=== PATIENT | female | born 1955 | race Caucasian/White ===

== ENCOUNTER 2016-08-18 11:17 | Emergency (ER) | payer OTHER ==
--- NOTE | 2016-08-18 11:32 | ED Physician Documentation ---
General Adult - HISTORIAN Historian: patient - HPI Stated Complaint: swelling L lower jaw Chief Complaint: General Adult Onset: days ago (3) Timing: still present Severity: moderate Further Comments: yes (Pt is a 61 yo female with hx HIV, who has a swelling along her R lower jaw, that she believes is an inflamed lymph node. Pt has had nearly identical sx before several years ago that was resolved with abx. Pt has dentures, having had her teeth removed. Pt has not had fever, n/v. Enlarged area is very tender.) - ROS CONST: no problems EYES/ENT: none CVS/RESP: none MS/SKIN/LYMPH: other (swelling, possible enlarged lymph node, L lower jaw.) - PAST HX Past History: other (HIV) Allergies/Adverse Reactions: Allergies Allergy/AdvReac Type Severity Reaction Status Date / Time ibuprofen Allergy Intermediate Rash Verified 08/18/16 11:36 No Known Drug Allergies Allergy Verified 08/18/16 11:35 Iodinated Contrast Media - AdvReac Intermediate Palpitation Verified 08/18/16 11 :38 IV Dye s Home Medications: Ambulatory Orders Medication Instructions Recorded Aripiprazole [Abilify] 2 mg PO DAILY u2 05/17/13 Prochlorperazine Maleate 10 mg PO PRN u2 05/17/13 Trazodone HCl 50 mg PO HS u2 05/17/13 - SOCIAL HX Smoking History: cigarettes - FAMILY HX Family History: No - REVIEWED ASSESSMENTS Nursing Assessment Reviewed: Yes Vitals Reviewed: Yes Progress - Progress Progress: Rx Augmenting (875/125) 1 po q 12 h x 10 days. Rx [place] (5/325) 1-2 po q 4-6h prn # 15. General Adult Physical Exam - PHYSICAL EXAM GENERAL APPEARANCE: mild distress EENT: eye inspection normal, pharynx normal, other (swelling L lower jaw) NECK: normal inspection, supple RESPIRATORY: no resp distress, chest non-tender, breath sounds normal CVS: reg rate & rhythm, heart sounds normal BACK: normal inspection SKIN: other (swelling, L lower jaw, tender) EXTREMITIES: non-tender, normal range of motion NEURO: oriented X3, motor nml, sensation nml Discharge Clincal Impression: Lymphadenopathy, possible jaw abscess Referrals: Shanae Morales MD [Primary Care Provider] - Home Medications: Ambulatory Orders Aripiprazole [Abilify] 2 mg PO DAILY u2 05/17/13 Prochlorperazine Maleate 10 mg PO PRN u2 05/17/13 Trazodone HCl 50 mg PO HS u2 05/17/13 Condition: Stable Disposition: 01 HOME, SELF-CARE Decision to Admit: NO Decision Time: 11:32
[2016-08-18 11:48] VITALS: BP 143/86
== END 2016-08-18 11:47 | disposition home or self-care (01) ==
LOC: ED 11:17
DX: R59.0 Localized enlarged lymph nodes (principal); Z21 Asymptomatic human immunodeficiency virus [HIV] infection status
CPT/HCPCS: 99283

== ENCOUNTER 2016-09-09 14:19 | Emergency (ER) | payer OTHER ==
--- NOTE | 2016-09-09 14:29 | ED Physician Documentation ---
General Adult - HISTORIAN Historian: patient - HPI Stated Complaint: intoxication Chief Complaint: General Adult Onset: days ago Timing: still present Severity: moderate Further Comments: yes (Pt is a 61 yo female with hx alcoholism. Pt states that she stopped drinking for 1 year and then, last week, she relapsed and has been drinking a fifth of whiskey/day for the last 6 days. Pt is afraid that if she stops drinking, she may have the DT's or a seizure. Pt has hx bipolar d/o, HIV , and HTN.) - ROS CONST: other (intoxication) EYES/ENT: none CVS/RESP: none GI/: none MS/SKIN/LYMPH: other (back pain) NEURO/PSYCH: other (intoxicated) - PAST HX Past History: other (bipolar d/o, alcohol abuse, HIV) Allergies/Adverse Reactions: Allergies Allergy/AdvReac Type Severity Reaction Status Date / Time ibuprofen Allergy Intermediate Rash Verified 09/09/16 14:42 No Known Drug Allergies Allergy Verified 09/09/16 14:42 Iodinated Contrast Media - AdvReac Intermediate Palpitation Verified 09/09/16 14 :42 IV Dye s Home Medications: Ambulatory Orders Medication Instructions Recorded Aripiprazole [Abilify] 2 mg PO DAILY u2 05/17/13 Trazodone HCl 50 mg PO HS u2 05/17/13 - SOCIAL HX Smoking History: cigarettes Alcohol Use: heavy - FAMILY HX Family History: No - VITAL SIGNS Vital Signs: Vital Signs Temp Pulse Resp BP Pulse Ox 143/86 08/18/16 11:47 - REVIEWED ASSESSMENTS Nursing Assessment Reviewed: Yes Vitals Reviewed: Yes Progress - Progress Progress: Banana Bag 1 L IVF Contacted [facility] re: voluntary placement, but [facility] does not accept pt's insurance, [employer]. Contacted [facility] in [place], [place] (Tel. [phone]). They accept [employer], but say they will accept pt only if pt is actively withdrawing. Was considering admitting pt to obs and attempting rehab placement tomorrow. Pt decided that she did not want to be admitted. Pt was provided with Telephone number for [facility], should she decide to seek placement later. General Adult Physical Exam - PHYSICAL EXAM GENERAL APPEARANCE: thin EENT: eye inspection normal, pharynx normal NECK: normal inspection, supple RESPIRATORY: no resp distress, chest non-tender, breath sounds normal (distant breath sounds) CVS: reg rate & rhythm, heart sounds normal ABDOMEN: soft, no organomegaly, normal bowel sounds BACK: normal inspection SKIN: warm/dry, normal color EXTREMITIES: non-tender, normal range of motion, no evidence of injury NEURO: oriented X3, motor nml, sensation nml, other (intoxicated) Discharge Clincal Impression: intoxication Referrals: Shanae Morales MD [Primary Care Provider] - Home Medications: Ambulatory Orders Aripiprazole [Abilify] 2 mg PO DAILY u2 05/17/13 Trazodone HCl 50 mg PO HS u2 05/17/13 Condition: Stable Decision to Admit: NO Decision Time: 16:43
[2016-09-09 14:39] VITALS: BP 147/98
[2016-09-09 14:51] LABS: APPEARANCE,URINE Clear (CLEAR); COLOR,URINE Yellow (YELLOW); OCCULT BLOOD,URINE Negative (NEGATIVE); PH URINE 6.5 (5.0 - 8.0); UROBILINOGEN URINE 0.2 Eu (0.2-1.0)
[2016-09-09 14:54] LABS: AMPHETAMINE NEGATIVE ng/mL (<1000); BARBITURATES NEGATIVE ng/mL (<300); CANNABINOIDS NEGATIVE ng/mL (<50); COCAINE NEGATIVE ng/mL (<150); METHAMPHETAMINE NEGATIVE ng/mL (<1000); METHYLENEDIOXYMETHAMPHETAMINE NEGATIVE ng/mL (<500)
[2016-09-09] MEDS ORDERED: 0.9 % SODIUM CHLORIDE 1,000 ML IV ONE (14:54)
[2016-09-09] MEDS ORDERED: MVI, ADULT NO.1 WITH VIT K 10 ML VIAL IV ONE (14:55)
[2016-09-09] MEDS ORDERED: THIAMINE HCL 100 MG/ML 2ML VIAL ONE (14:55)
[2016-09-09] MEDS ORDERED: FOLIC ACID 5 MG/1 ML ONE (14:55)
[2016-09-09] MEDS ORDERED: THIAMINE HCL 100 MG, MVI, ADULT NO.1 WITH VIT K 10 ML, FOLIC ACID 5 MG in 0.9 % SODIUM ... IV SCH ×4 (15:00)
[2016-09-09 15:17] LABS: BASOPHILS % 0.5 (0.0-1.5); EOSINOPHILS % 0.5 % (0.0-6.8); MEAN CORPUSCULAR HEMOGLOBIN 31.9 pg (28.0-34.0); MEAN CORPUSCULAR VOLUME 93.6 fl (80.0-100.0); MONOCYTES % 4.2 % (0.0-11.0); NEUTROPHILS # 2.9 # k/uL (1.4-7.7)
[2016-09-09 15:21] LABS: eGFR (African) > 60; eGFR (Non-African) > 60
== END 2016-09-09 16:45 ==
LOC: ED 14:19 → EDSTATUS 14:20 → ED 16:45
DX: F10.229 Alcohol dependence with intoxication, unspecified (principal)
CPT/HCPCS: 80053; 80320; 80377; 81002; 85025; J3411; J3490; J7030; 96360; 99284; G0480; G0481; S1016

== ENCOUNTER 2016-09-09 17:39 | Observation (INO) | payer OTHER ==
[2016-09-09] MEDS ORDERED: 0.9 % SODIUM CHLORIDE 1,000 ML IV ONE (18:12)
--- NOTE | 2016-09-09 18:13 | ED Physician Documentation ---
General Adult - HISTORIAN Historian: patient - HPI Stated Complaint: intoxication, wants detox Chief Complaint: General Adult Onset: days ago Timing: still present Severity: moderate Further Comments: yes (Pt is a 61 yo female with hx alcoholism, who was here in ER only an hour ago. She had requested and then declined treatment. She again requests detox. Pt returns intoxicated stating that she has consumed a bottle of wine in the short interval during which she left the ER. Pt states that she had stopped drinking for 1 year and then, last week, she relapsed and has been drinking a fifth of whiskey/day for the last 6 days. Pt is afraid that if she stops drinking, she may have the DT's or a seizure. Pt says that she has tried to quit drinking on her own in the past and then had seizures. Pt has hx bipolar d/o, HIV, and HTN. See note from earlier visit today.) - ROS CONST: other (intoxication) EYES/ENT: none CVS/RESP: none GI/: none MS/SKIN/LYMPH: none NEURO/PSYCH: other (alcohol intoxication, "shakey") - PAST HX Past History: other (Alcoholism, bipolar d/o, HIV) Allergies/Adverse Reactions: Allergies Allergy/AdvReac Type Severity Reaction Status Date / Time ibuprofen Allergy Intermediate Rash Verified 09/09/16 18:02 No Known Drug Allergies Allergy Verified 09/09/16 18:02 Iodinated Contrast Media - AdvReac Intermediate Palpitation Verified 09/09/16 18 :02 IV Dye s Home Medications: Ambulatory Orders Medication Instructions Recorded Aripiprazole [Abilify] 2 mg PO DAILY u2 05/17/13 Trazodone HCl 50 mg PO HS u2 05/17/13 - SOCIAL HX Smoking History: cigarettes Alcohol Use: heavy - FAMILY HX Family History: No - VITAL SIGNS Vital Signs: Vital Signs Temp Pulse Resp BP Pulse Ox 98.1 F 100 H 16 130/87 97 09/09/16 17:39 09/09/16 17:39 09/09/16 17:39 09/09/16 17:39 09/09/16 17:39 - REVIEWED ASSESSMENTS Nursing Assessment Reviewed: Yes Vitals Reviewed: Yes Progress - Progress Progress: NS @ 100 cc/hr Admit to Dr. Borrero, ETOH withdrawal precautions. ED Results Lab/Radiology - Orders Orders: ED Orders Category Date Time Status ETHANOL MEDICAL USE ONLY Routine Lab 09/09/16 17:55 Received General Adult Physical Exam - PHYSICAL EXAM GENERAL APPEARANCE: moderate distress EENT: eye inspection normal, pharynx normal NECK: normal inspection, supple RESPIRATORY: no resp distress, chest non-tender, breath sounds normal (distant breath sounds) CVS: reg rate & rhythm, heart sounds normal ABDOMEN: soft, no organomegaly, normal bowel sounds BACK: normal inspection SKIN: warm/dry, normal color EXTREMITIES: non-tender, normal range of motion, no evidence of injury NEURO: oriented X3, motor nml, sensation nml, other (intoxicated) Discharge Clincal Impression: ETOH intoxication, withdrawl risk Referrals: Shanae Morales MD [Primary Care Provider] - Home Medications: Ambulatory Orders Aripiprazole [Abilify] 2 mg PO DAILY u2 05/17/13 Trazodone HCl 50 mg PO HS u2 05/17/13 Condition: Stable Disposition: 09 ADMITTED INPATIENT Decision to Admit: [id number] Decision Time: 18:44
[2016-09-09] MEDS: 0.9 % SODIUM CHLORIDE 1,000 ML IV SCH ×2 (18:24→19:45)
--- NOTE | 2016-09-09 21:32 | History and Physical Report ---
History of Present Illnes - History of Present Illness Reason for Visit: Acute alcohol intoxication History of Present Illness: This is a 61 year old female who presented twice to the ER today with desire to quit drinking. She left after being in the ER for a few hours and then, after consuming another bottle of wine, came back to the ER with her BAL being slightly more elevated than during her first visit. She had been sober for several years and then began drinking again 4 months ago,and since then has been daily drinking over a fifth of whiskey daily. She has a history of seizures when she has stopped drinking in the past, and voiced this fear to the ER staff at her first visit. She is now too intoxicated to extract much history from , but appears to be in no acute distress and is resting comfortably. Severity assessments are in place. - Past Medical History Cardiac: HTN Pulmonary: COPD Gastrointestinal: Peptic ulcer disease Psych: Addictions, Bipolar, Other (Borderline personality disorder) Musculoskeletal: Chronic low back pain Infectious Disease: HIV - Past Surgical History Past Surgical History: Other (Breast implants) - Past Social History Smoke: 1 pack per day Alcohol: Heavy Drugs: Other Lives: Alone Domestic Violence: Other (cannot elicit) - Health Maintenance Health Maintenance: Cholesterol Influenza Vaccine: Current for this Influenza Season Pneumonia Vaccine: Yes Resuscitation Status: Resusciation Status Resuscitation Status Full Code Review of Systems - Review of Systems Constitutional: negative: Fever Eyes: negative: pain ENT: negative: Ear Pain Respiratory: negative: Cough Cardiovascular: negative: Chest Pain Gastrointestinal: negative: Nausea Genitourinary: negative: Dysuria Musculoskeletal: negative: Neck Pain Skin: negative: Rash Neurological: Confusion. negative: Weakness - Medications/Allergies Allergies/Adverse Reactions: Allergies Allergy/AdvReac Type Severity Reaction Status Date / Time ibuprofen Allergy Intermediate Rash Verified 09/09/16 18:02 No Known Drug Allergies Allergy Verified 09/09/16 18:02 Iodinated Contrast Media - AdvReac Intermediate Palpitation Verified 09/09/16 18 :02 IV Dye s Current Inpatient Medications: Current Inpatient Medications Aripiprazole (Aripiprazole) 2 mg PO QD SHAHLA Stop: 09/11/16 23:59 Sodium Chloride (Normal Saline) 1,000 mls @ 125 mls/hr IV Q8H SHAHLA Last Admin: 09/09/16 19:45 Dose: 125 mls/hr Lisinopril (Prinivil) 10 mg PO NOW ONE Stop: 09/10/16 09:01 Nicotine (Habitrol 14mg) 1 patch TD DAILY SHAHLA Exam - Exam Vital Signs: Vital Signs (72 hours) 09/09/16 19:32 Temperature 98.0 F Pulse Rate [ 75 Pulse ox] Respiratory 20 Rate Blood Pressure 133/69 [Left Arm] O2 Sat by Pulse 94 Oximetry General: Oriented to Person, No acute distress. No: Alert, Oriented to Place, Oriented to Time HEENT: Atraumatic, PERRLA Neck: No: Stridor Lungs: Clear to auscultation, Decreased Air Movement Cardiovascular: Regular rate Murmur: No: Systolic Murmur Abdomen: Normal bowel sounds, Soft. No: Distended, Rigid Genitourinary: No: Other Male Genitourinary: No: Other Female Genitourinary: No: Other Integumentary: Normal, [employer] Extremities: No clubbing, No cyanosis, No edema Neurological: No: Normal speech Psych/Mental Status: No: Mental status NL, Intact Judgment Assessment/Plan - Assessment/Plan (1) Acute alcohol intoxication Status: Acute Current Visit: Yes Assessment: Admit for observation Severity assessments are in place Plan: Plan is for her to attempt placement in [facility] tomorrow (2) Bipolar 1 disorder Status: Acute Current Visit: Yes Assessment: Continue Abilify (3) HIV (human immunodeficiency virus infection) Status: Acute Current Visit: Yes Assessment: Currently on no apparent medications (4) Hypertension Status: Acute Current Visit: Yes Assessment: Stable Plan: Continue lisinopril VTE Assessment - RISK FACTOR SCORE VTE RISK FACTOR SCORES: AGE OVER 60 YEARS - RISK VTE LOW RISK: SCORE OF 1 OR LESS (RISK PROXIMAL DVT 0.4%) NO PROPHYLAXIS NEEDED (None needed)
[2016-09-09] MEDS ORDERED: LORazepam 2 MG/ML VIAL IVP PRN (22:04)
[2016-09-09 22:07] VITALS: BMI 18.0
[2016-09-10] MEDS: 0.9 % SODIUM CHLORIDE 1,000 ML IV SCH (03:10)
[2016-09-10 08:13] VITALS: BP 181/65
[2016-09-10] MEDS ORDERED: NICOTINE 14mg PATCH.TD24 TD SCH (09:00)
[2016-09-10] MEDS ORDERED: LISINOPRIL 5 MG TABLET PO ONE (09:00)
[2016-09-10] MEDS ORDERED: ARIPIPRAZOLE 2 MG TABLET PO SCH (09:00)
--- NOTE | 2016-09-10 09:10 | Discharge Summary ---
DATE OF ADMISSION: September 09, 2016 DATE OF DISCHARGE: September 10, 2016 DIAGNOSES ON THIS HOSPITALIZATION: 1. Alcohol intoxication. 2. Bipolar I disorder. 3. HIV infection. 4. Hypertension. SUMMARIZATION OF ADMISSION HISTORY AND PHYSICAL: This is a 61-year-old female who had begun with chronic alcoholism, who had actually been sober for a while, the last 4 weeks when she began to drink about a fifth of whiskey again every day. She came in last night acutely intoxicated. HOSPITAL COURSE: She was admitted. She was sober by the next morning. She did never did score on the Severity Assessment Scale. She was discharged to home then with resumption of all of her medications. DISCHARGE INSTRUCTIONS: Follow up with Dr. Morales this week. TAE
== END 2016-09-10 08:55 | disposition home or self-care (01) ==
LOC: ED 17:39 → SOUTH 18:57
PROVIDERS: ADMIT Family Medicine; ATTEND Family Medicine
DX: F10.129 Alcohol abuse with intoxication, unspecified (principal); F31.9 Bipolar disorder, unspecified; Z21 Asymptomatic human immunodeficiency virus [HIV] infection status; I10 Essential (primary) hypertension
CPT/HCPCS: 80320; G0378; J7030; 99284; G0480; S1016

== ENCOUNTER 2016-09-11 08:00 | Emergency (ER) | payer OTHER ==
[2016-09-11] MEDS ORDERED: THIAMINE HCL 100 MG, MVI, ADULT NO.1 WITH VIT K 10 ML, FOLIC ACID 5 MG in 0.9 % SODIUM ... IV ONE ×4 (08:17)
[2016-09-11] MEDS ORDERED: MVI, ADULT NO.1 WITH VIT K 10 ML VIAL IV ONE (08:18)
[2016-09-11] MEDS ORDERED: THIAMINE HCL 100 MG/ML 2ML VIAL ONE (08:18)
[2016-09-11] MEDS ORDERED: 0.9 % SODIUM CHLORIDE 1,000 ML IV ONE ×3 (08:18→10:14)
[2016-09-11] MEDS ORDERED: FOLIC ACID 5 MG/1 ML ONE (08:18)
[2016-09-11 08:24] LABS: BASOPHILS % 0.4 (0.0-1.5); EOSINOPHILS % 3.2 % (0.0-6.8); MEAN CORPUSCULAR HEMOGLOBIN 32.4 pg (28.0-34.0); MEAN CORPUSCULAR VOLUME 94.8 fl (80.0-100.0); MONOCYTES % 3.6 % (0.0-11.0); NEUTROPHILS # 2.1 # k/uL (1.4-7.7)
--- NOTE | 2016-09-11 08:28 | ED Physician Documentation ---
General Adult - HISTORIAN Historian: patient, paramedics - [facility] Chief Complaint: General Adult Further Comments: yes (61 year old female patient presents intoxicated. "Are you going to save me?" Patient too intoxicated to complete History and ROS. Old records reviewed. Seen in Er twice on 09/09/2016, admitted to med surg. Discharge to F/U with PCP. Patient has history of ETOH abuse, had been sober for some time until 4 months ago. Now consuming a Fifth of whiskey daily. Patient states "I've been drinking whiskey", cannot quantify amount at this time.) - ROS CONST: no problems (unable to complete due to intoxication. ) - PAST HX Past History: COPD Other History: other (bipolar, HIV positive) Allergies/Adverse Reactions: Allergies Allergy/AdvReac Type Severity Reaction Status Date / Time ibuprofen Allergy Intermediate Rash Verified 09/11/16 09:11 Iodinated Contrast Media - AdvReac Intermediate Palpitation Verified 09/11/16 09 :11 IV Dye s Home Medications: Ambulatory Orders Medication Instructions Recorded Aripiprazole [Abilify] 2 mg PO DAILY u2 05/17/13 Trazodone HCl 50 mg PO HS u2 05/17/13 - SOCIAL HX Smoking History: cigarettes Alcohol Use: heavy Drug Use: other (unknown) - FAMILY HX Family History: No - VITAL SIGNS Vital Signs: Vital Signs Temp Pulse Resp BP Pulse Ox 181/65 09/10/16 08:23 - REVIEWED ASSESSMENTS Nursing Assessment Reviewed: Yes Vitals Reviewed: Yes Progress - Progress Progress: Will progress with IV fluids. 0840 Patient awakens at times, yells at nurses, frequently using profanity. Able to redirect, goes back to sleep. 1200 Repeat ETOH 314 - will admit for IV fluids, ETOH assessment. ED Results Lab/Radiology - Orders Orders: ED Orders Category Date Time Status Place Saline Lock/IV Now Care 09/11/16 08:17 Active CBC/PLATELET/DIFF Routine Lab 09/11/16 08:20 Received CMP Routine Lab 09/11/16 08:20 Received DRUG SCREEN URINE MEDICAL ONLY Routine Lab 09/11/16 08:17 Ordered ETHANOL MEDICAL USE ONLY Routine Lab 09/11/16 08:20 Received URINALYSIS Routine Lab 09/11/16 08:17 Ordered 0.9 % Sodium Chloride [Normal Saline] 1,000 ml Med 09/11/16 08:18 Discontinued IV .STK-MED Folic Acid [Folvite] Med 09/11/16 08:18 Discontinued 5 mg .ROUTE .STK-MED ONE Mvi, Adult No.1 with Vit K [M.v.i. Adult] Med 09/11/16 08:18 Discontinued 10 ml IV .STK-MED ONE Thiamine HCl Med 09/11/16 08:18 Discontinued 200 mg .ROUTE .STK-MED ONE Thiamine HCl 100 mg Med 09/11/16 08:17 Active Mvi, Adult No.1 with Vit K [M.v.i. Adult] 10 ml Folic Acid [Folvite] 5 mg 0.9 % Sodium Chloride [Normal Saline] 1,000 ml IV NOW General Adult Physical Exam - PHYSICAL EXAM GENERAL APPEARANCE: severe intoxication, strong smell of ETOH EENT: eye inspection normal, NOEMI RESPIRATORY: no resp distress, chest non-tender, breath sounds normal CVS: reg rate & rhythm, heart sounds normal, equal pulses, no murmur, no gallop , PMI nml, no JVD, no friction rub, 24 ABDOMEN: soft, no organomegaly, normal bowel sounds, no abdominal bruit, no distension SKIN: normal color, warm/dry, NR, INT, PAL, DR EXTREMITIES: non-tender, normal range of motion, no evidence of injury, no edema , J, [employer]CIAL DATA A[employer]LYST NEURO: motor nml, other (no neuro deficit noted at this time, HE x 4, intoxicated, oriented to person only.) Discharge Clincal Impression: HIV (human immunodeficiency virus infection) Acute alcohol intoxication Qualifiers: Complication of substance-induced condition: uncomplicated Qualified Code(s): F10.120 - Alcohol abuse with intoxication, uncomplicated Home Medications: Ambulatory Orders Aripiprazole [Abilify] 2 mg PO DAILY u2 05/17/13 Trazodone HCl 50 mg PO HS u2 05/17/13 Condition: Stable Disposition: ADMITTED INPATIENT Decision to Admit: NO Decision Time: 12:15
[2016-09-11 08:41] LABS: eGFR (African) > 60; eGFR (Non-African) > 60
[2016-09-11 09:29] LABS: APPEARANCE,URINE Clear (CLEAR); COLOR,URINE Yellow (YELLOW); OCCULT BLOOD,URINE Trace-intact (NEGATIVE); PH URINE 5.5 (5.0 - 8.0); UROBILINOGEN URINE 0.2 Eu (0.2-1.0)
[2016-09-11 09:31] LABS: AMPHETAMINE NEGATIVE ng/mL (<1000); BARBITURATES NEGATIVE ng/mL (<300); CANNABINOIDS NEGATIVE ng/mL (<50); COCAINE NEGATIVE ng/mL (<150); METHAMPHETAMINE NEGATIVE ng/mL (<1000); METHYLENEDIOXYMETHAMPHETAMINE NEGATIVE ng/mL (<500)
[2016-09-11 12:29] VITALS: BP 120/68
== END 2016-09-11 12:10 | disposition other institution (70) ==
LOC: ED 08:00
DX: F10.120 Alcohol abuse with intoxication, uncomplicated (principal); Z21 Asymptomatic human immunodeficiency virus [HIV] infection status
CPT/HCPCS: 36415; 80053; 80320; 80377; 81002; 85025; J3411; J3490; J7030; 96360; 99283; 99284; G0480; G0481

== ENCOUNTER 2016-09-11 11:40 | Observation (INO) | payer OTHER ==
[2016-09-11] MEDS ORDERED: LORazepam 2 MG/ML VIAL IVP PRN (12:38)
[2016-09-11] MEDS: DEXTROSE 5 %-0.45 % NACL 1,000 ML IV SCH ×2 (12:58→19:37)
[2016-09-11 14:39] VITALS: BMI 19.3
[2016-09-12] MEDS: DEXTROSE 5 %-0.45 % NACL 1,000 ML IV SCH (01:45)
[2016-09-12] MEDS ORDERED: MAG HYDROX/AL HYDROX/SIMETH 30 ML, Lidocaine 2%Visc 15ml 20 MG, PHENobarb/HYOSCY/ATROPI... PO ONE ×3 (07:25)
[2016-09-12] MEDS ORDERED: PANTOPRAZOLE SODIUM 40 MG TABLET PO ONE (07:25)
[2016-09-12] MEDS ORDERED: ONDANSETRON HCL 4 MG TAB.RAPDIS PO ONE (07:25)
--- NOTE | 2016-09-12 08:03 | Discharge Summary ---
Discharge Summary - Discharge Sumary History of Present Illness: chronic alcoholism Condition at Discharge: Stable Home Medications: Ambulatory Orders Medication Instructions Recorded Aripiprazole [Abilify] 2 mg PO DAILY u2 05/17/13 Trazodone HCl 50 mg PO HS u2 05/17/13 Consultations this Visit: None Procedures this Visit: None Allergies/Adverse Reactions: Allergies Allergy/AdvReac Type Severity Reaction Status Date / Time ibuprofen Allergy Intermediate Rash Verified 09/11/16 09:11 Iodinated Contrast Media - AdvReac Intermediate Palpitation Verified 09/11/16 09 :11 IV Dye s Discharge Summary: pt. given ivf and blood etoh down to 115 by evening before discharge. Discharged in stable condition resuming htn and bipolar meds, adding prilosec 40 mg p.o. daily and gabapentin 100 mg p.o. tid. Hospital Course: pt stable entire time in hosp
[2016-09-12] MEDS ORDERED: MAG HYDROX/AL HYDROX/SIMETH 30 ML UDC PO ONE (09:16)
[2016-09-12 09:47] VITALS: BP 113/67
== END 2016-09-12 09:30 | disposition home or self-care (01) ==
LOC: SOUTH 11:40 → UNDOADMOB 11:40
PROVIDERS: ADMIT Emergency Medicine; ATTEND Family Medicine
DX: F10.229 Alcohol dependence with intoxication, unspecified (principal)
CPT/HCPCS: 80320; G0378; G0379; J2060; 96374; G0480; S5010

== ENCOUNTER 2016-09-12 18:31 | Emergency (ER) | payer OTHER ==
[2016-09-12] MEDS ORDERED: HALOPERIDOL LACTATE 5 MG/ML VIAL IM ONE ×2 (18:37→18:38)
--- NOTE | 2016-09-12 19:10 | ED Physician Documentation ---
General Adult - HISTORIAN Historian: patient - HPI Stated Complaint: Alcohol Abuse Chief Complaint: General Adult Additional Information: Pt. was just discharged from this hosp. this am for etoh intoxication. P{t. went back to living domicile and began drinking again. Pt. belligerent, uncooperative Onset: hours (2) Timing: still present Severity: moderate Modifying Factors: chronic alcohol abuse Further Comments: no - ROS CONST: no problems EYES/ENT: none CVS/RESP: none GI/: abdominal pain (tx for alcoholic gastritis this am) MS/SKIN/LYMPH: none NEURO/PSYCH: other (neuropathies feet) - PAST HX Past History: hypertension, other (hiv positive, alcoholism, bipolar disorder) Other History: none Surgeries/Procedures: none Immunizations: referred to PCP Allergies/Adverse Reactions: Allergies Allergy/AdvReac Type Severity Reaction Status Date / Time ibuprofen Allergy Intermediate Rash Verified 09/12/16 18:36 Iodinated Contrast Media - AdvReac Intermediate Palpitation Verified 09/12/16 18 :36 IV Dye s Home Medications: Ambulatory Orders Medication Instructions Recorded Aripiprazole [Abilify] 2 mg PO DAILY u2 05/17/13 Trazodone HCl 50 mg PO HS u2 05/17/13 - SOCIAL HX Smoking History: cigarettes Alcohol Use: none Drug Use: none - FAMILY HX Family History: Yes - VITAL SIGNS Vital Signs: Vital Signs Temp Pulse Resp BP Pulse Ox 98 H 20 149/87 98 09/12/16 18:32 09/12/16 18:32 09/12/16 18:32 09/12/16 18:32 - REVIEWED ASSESSMENTS Nursing Assessment Reviewed: Yes Vitals Reviewed: Yes Progress - Results/Orders Results/Orders: no testing ordered - Progress Progress: Pt. given 10 mg Haldol im in er. Critical Care Note - Critical Care Note Total Time (mins): 0 ED Results Lab/Radiology - Lab Results Lab Results: none ordered - Radiology Radiology Impressions: none ordered - Orders Orders: ED Orders Category Date Time Status Haloperidol Lactate [Haldol] Med 09/12/16 18:37 Discontinued 10 mg IM .STK-MED ONE Haloperidol Lactate [Haldol] Med 09/12/16 18:38 Discontinued 5 mg IM NOW ONE General Adult Physical Exam - PHYSICAL EXAM GENERAL APPEARANCE: pt. intoxicated, belligerent, cursing EENT: eye inspection normal, ENT inspection normal, pharynx normal, no signs of dehydration, NOEMI NECK: normal inspection, thyroid normal, supple RESPIRATORY: no resp distress, chest non-tender, breath sounds normal CVS: reg rate & rhythm, heart sounds normal ABDOMEN: soft, no organomegaly, normal bowel sounds BACK: normal inspection, no CVA tenderness SKIN: warm/dry, normal color EXTREMITIES: non-tender, normal range of motion NEURO: oriented X3, CN's nml as tested, motor nml, sensation nml, other ( intoxicated) Discharge Clincal Impression: Alcohol intoxication Qualifiers: Complication of substance-induced condition: uncomplicated Qualified Code(s): F10.120 - Alcohol abuse with intoxication, uncomplicated Home Medications: Ambulatory Orders Aripiprazole [Abilify] 2 mg PO DAILY u2 05/17/13 Trazodone HCl 50 mg PO HS u2 05/17/13 Comments: Pt. discharged after 10 mg Haldol im in er. Pt. states "I want to go home". Pt. still has scripts from hosp. discharge earlier for Prilosec and Gabapentin. Condition: Stable Disposition: 01 HOME, SELF-CARE Decision to Admit: NO Decision Time: 19:00
[2016-09-12 19:30] VITALS: BP 113/67
== END 2016-09-12 19:25 | disposition home or self-care (01) ==
LOC: ED 18:31
DX: F10.120 Alcohol abuse with intoxication, uncomplicated (principal)
CPT/HCPCS: J1630 ×2; 96372; 99283

== ENCOUNTER 2016-10-15 08:07 | Emergency (ER) | payer OTHER ==
[2016-10-15 09:10] LABS: BASOPHILS % 0.2 (0.0-1.5); EOSINOPHILS % 1.9 % (0.0-6.8); MEAN CORPUSCULAR HEMOGLOBIN 32.1 pg (28.0-34.0); MEAN CORPUSCULAR VOLUME 100.1 fl (80.0-100.0); MONOCYTES % 4.6 % (0.0-11.0); NEUTROPHILS # 1.9 # k/uL (1.4-7.7)
[2016-10-15 09:25] LABS: eGFR (African) > 60; eGFR (Non-African) > 60
[2016-10-15 10:03] VITALS: BP 148/68
--- NOTE | 2016-10-15 10:08 | ED Physician Documentation ---
Lower Extremity Injury - HISTORIAN Historian: patient - HPI Stated Complaint: RIGHT ANKLE SWELLING Chief Complaint: Lower Extremity Injury Onset: days ago (2 days Friday) Where: home Severity: moderate Context: twist Associated Symptoms:: tingling Modifying Factors:: other (pain with weight bearing) - ROS CONST: no problems. denies: fever, chills - PAST HX Past History: other (HIV, hypertension, Bipolar disorder; s/p ORIF right ankle fracture.) Immunizations: referred to PCP Allergies/Adverse Reactions: Allergies Allergy/AdvReac Type Severity Reaction Status Date / Time ibuprofen Allergy Intermediate Rash Verified 10/15/16 08:19 Iodinated Contrast Media - AdvReac Intermediate Palpitation Verified 10/15/16 08 :19 IV Dye s Home Medications: Ambulatory Orders Medication Instructions Recorded Aripiprazole [Abilify] 2 mg PO DAILY u2 05/17/13 Trazodone HCl 50 mg PO HS u2 05/17/13 Amoxicillin [Trimox] 500 mg PO TID #30 capsule 10/15/16 Tramadol HCl [Ultram] 50 mg PO Q6 PRN #20 tablet 10/15/16 - SOCIAL HX Smoking History: less than 1 pack/day (1/2 ppd) Alcohol Use: none Drug Use: none - FAMILY HX Family History: none - VITAL SIGNS Vital Signs: Vital Signs Temp Pulse Resp BP Pulse Ox 97.1 F L 70 18 161/94 99 10/15/16 08:10 10/15/16 08:10 10/15/16 08:10 10/15/16 08:10 10/15/16 08:10 - REVIEWED ASSESSMENTS Nursing Assessment Reviewed: Yes Vitals Reviewed: Yes ED Results Lab/Radiology - Lab Results Lab Results: Lab Results 10/15/16 10/15/16 Unknown 09:00 WBC 2.60 K/ul L K/ul (4.00-12.00) RBC 3.59 M/ul L M/ul (3.90-5.20) Hgb 11.5 g/dL L g/dL (12.0-16.0) Hct 36.0 % % (34.5-46.5) MCV 100.1 fl H fl (80.0-100.0) MCH 32.1 pg pg (28.0-34.0) MCHC 32.0 g/dL g/dL (30.0-36.0) RDW 13.4 % % (11.3-14.3) Plt Count 151 K/mm3 K/mm3 (130-400) Neut % (Auto) 72.9 % % (39.0-79.0) Lymph % (Auto) 19.8 % % (16.0-50.0) [place] % (Auto) 4.6 % % (0.0-11.0) Eos % (Auto) 1.9 % % (0.0-6.8) Baso % (Auto) 0.2 (0.0-1.5) Neut # 1.9 # k/uL # k/uL (1.4-7.7) Lymph # 0.5 # k/uL L # k/uL (0.6-4.0) [place] # 0.1 # k/uL # k/uL (0.0-0.9) Eos # 0.0 # k/uL # k/uL (0.0-0.6) Baso # 0.0 # k/uL # k/uL (0.0-0.5) Reactive Lymphs % 0.6 % % (0.0-5.0) Reactive Lymphs # 0.0 # k/uL # k/uL (0.0-0.8) Sodium 137 mmol/L mmol/L (136-145) Potassium 3.5 mmol/L mmol/L (3.5-5.0) Chloride 106 mmol/L mmol/L (98-110) Carbon Dioxide 32 mmol/L mmol/L (20-32) BUN 10 mg/dL mg/dL (10-26) Creatinine 0.6 mg/dL mg/dL (0.4-1.5) Estimated Creat Clear 113 Est GFR ( Amer) > 60 (60 - ) Est GFR (Non-Af Amer) > 60 (60 - ) Glucose 102 mg/dL H mg/dL (70-99) Uric Acid 5.0 mg/dL mg/dL (2.0-7.8) Calcium 9.1 mg/dL mg/dL (8.5-10.5) Total Bilirubin 0.5 mg/dL mg/dL (0.2-1.2) AST 16 U/L U/L (0-41) ALT 12 U/L U/L (0-45) Alkaline Phosphatase 104 U/L U/L (46-116) Total Protein 6.0 g/dL g/dL (6.0-8.5) Albumin 4.1 g/dL g/dL (3.0-5.5) - Orders Orders: ED Orders Category Date Time Status RIGHT ANKLE [ANKLE 3 VIEWS OR MORE] [RAD] Stat Exams 10/15/16 Ordered CBC/PLATELET/DIFF Routine Lab 10/15/16 Completed CMP Routine Lab 10/15/16 09:00 Completed URIC ACID Routine Lab 10/15/16 09:00 Completed Lower Extremities Injury Phy - Physical Exam General Appearance: mild distress Hips: bilateral hip: non-tender, normal inspection, normal range of motion, no evidence of injury Legs: bilateral: non-tender, normal inspection, normal range of motion Knees: bilateral: non-tender, normal inspection, normal range of motion, no evidence of injury Ankle: right: pain (just above ankle), soft tissue tenderness, swelling, left: non-tender, normal inspection, normal range of motion, no evidence of injury (=) Foot: bilateral foot: non-tender, normal inspection, normal range of motion, no evidence of injury Gait: limited by pain Neuro/Vascular/Tendon: no vascular compromise Head/ENT: nml inspection, pharynx nml, other (edentuous, mild lower gum irritation) Neck/Back: other (mild submental adenitis bilaterally) Resp/CVS: chest non-tender, breath sounds nml, heart sounds nml, no resp. distress Abdomen: non-tender Discharge Clincal Impression: Lymphadenitis Ankle pain, right Qualifiers: Chronicity: acute Qualified Code(s): M25.571 - Pain in right ankle and joints of right foot Prescriptions: Amoxicillin [Trimox] 500 mg PO TID #30 capsule Tramadol HCl [Ultram] 50 mg PO Q6 PRN #20 tablet PRN Reason: Pain Referrals: Primary Doctor,No [Primary Care Provider] - 2 Days Additional Instructions: Try to keep you ankle elevated with a cool compress. Take Tylenol as needed for pain and supplement with Tramadol. Follow-up with Dr. Morales for further evaluation of your lymphadinitis. Home Medications: Ambulatory Orders Aripiprazole [Abilify] 2 mg PO DAILY u2 05/17/13 Trazodone HCl 50 mg PO HS u2 05/17/13 Amoxicillin [Trimox] 500 mg PO TID #30 capsule 10/15/16 Tramadol HCl [Ultram] 50 mg PO Q6 PRN #20 tablet 10/15/16 Condition: Stable Disposition: 01 HOME, SELF-CARE Decision to Admit: NO Date of Decison to Admit: 10/15/16 Decision Time: 09:49
--- NOTE | 2016-10-15 12:50 | Diagnostic Imaging Report ---
[facility] [address] [facility].[address] [address] Report Submission Date: October 15, 2016 9:37:33 AM CDT Patient Study Name: HILL HANSEN Date: October 15, 2016 9:04:39 AM CDT Modality Type: CR Gender: F Description: LOWER EXTREMITY : 51 Institution: [facility] Physician RALPH SABA - ER EXAMINATION: Right ankle, three views. HISTORY: Medial ankle pain and swelling without recent injury. FINDINGS: Postoperative changes are present within the distal fibula with lateral plate and multiple screws. There is also a plate along the posterior aspect of the tibia. There is no evidence of acute fracture. The ankle mortise is normal. Minimal ankle soft tissue swelling is present. IMPRESSION: 1. No acute osseous abnormality. 2. Postoperative changes in the distal tibia and fibula. 3. Mild ankle soft tissue swelling. Electronically signed on October 15, 2016 9:37:33 AM CDT by: Rajeev STRONG
== END 2016-10-15 10:02 | disposition home or self-care (01) ==
LOC: ED 08:07
DX: M25.571 Pain in right ankle and joints of right foot (principal); L04.3 Acute lymphadenitis of lower limb
CPT/HCPCS: 73610; 80053; 84550; 85025

== ENCOUNTER 2016-10-19 08:23 | Emergency (ER) | payer OTHER ==
[2016-10-19] MEDS ORDERED: ENOXAPARIN SODIUM 60 MG/0.6 ML DISP.SYRIN SQ ONE ×2 (09:45→13:07)
[2016-10-19] MEDS ORDERED: HYDROcodone /APAP 5/325 1 EACH TABLET PO ONE (09:45)
--- NOTE | 2016-10-19 10:07 | ED Physician Documentation ---
Lower Extremity Problem - HISTORIAN Historian: patient - HPI Stated Complaint: right LE swelling and pain Chief Complaint: Lower Extremity Problem Additional Information: rt lower ext pain swelling onset approx 1 week-saw DR SABA 4 days ago tx w/ amox plus tramadol-swelling more with increase pain and increase swelling now ext to knee . pt works standing. Location of Injury: R ankle, R leg, R knee Onset: days ago (1 week) Timing: worse Duration: constant Recent Injury: No Severity: moderate Quality: pain, swelling, tenderness Exacerbated By: walking Relieved By: nothing Associated Symptoms: denies: chest pain, shortness of breath, rapid heart rate, fainting - ROS CONST: other (has djd takes tramadol-DR SABA gave her rx for tramadol did not get it filled. says it does not relieve her pain anyway.) MS/SKIN/LYMPH: calf pain, leg swelling, rash, leg pain, back pain (chronic), ankle swelling. denies: swollen glands CVS/RESP: none GI/: none EYES/ENT: none NERUO/PSYCH: difficulty walking, anxiety. denies: headache, dizziness - PAST HX Past History: other (djd hiv htn) PE Risk Factors: other (significant-denies cp or sob) Surgeries/Procedures: other (rt hip ankle foot w/hardware-xray tues wnl) Allergies/Adverse Reactions: Allergies Allergy/AdvReac Type Severity Reaction Status Date / Time ibuprofen Allergy Intermediate Rash Verified 10/19/16 08:44 Iodinated Contrast Media - AdvReac Intermediate Palpitation Verified 10/19/16 08 :44 IV Dye s Home Medications: Ambulatory Orders Medication Instructions Recorded Aripiprazole [Abilify] 2 mg PO DAILY u2 05/17/13 Trazodone HCl 50 mg PO HS u2 05/17/13 Amoxicillin [Trimox] 500 mg PO TID #30 capsule 10/15/16 Tramadol HCl [Ultram] 50 mg PO Q6 PRN #20 tablet 10/15/16 - SOCIAL HX Smoking History: less than 1 pack/day Alcohol Use: none Drug Use: none - FAMILY HX Family History: no significant history - VITAL SIGNS Vital Signs: Vital Signs Temp Pulse Resp BP Pulse Ox 98.6 F 77 16 159/99 99 10/19/16 08:40 10/19/16 08:40 10/19/16 08:40 10/19/16 08:40 10/19/16 08:40 - REVIEWED ASSESSMENTS Nursing Assessment Reviewed: Yes Vitals Reviewed: Yes ED Results Lab/Radiology - Orders Orders: ED Orders Category Date Time Status Enoxaparin Sodium [Lovenox] Med 10/19/16 09:45 Once 60 mg SQ NOW ONE HYDROcodone /APAP 5/325 [[place] 5/325] Med 10/19/16 09:45 Once 1 each PO NOW ONE Lower Extremity Problem - EXAM General Appearance: moderate distress Neuro/Tendon: normal sensation, responds to pain, no evidence tendon injury RESPIRATORY: no resp distress, chest non-tender, breath sounds normal. No: wheezes, rales, rhonchi CVS: reg rate & rhythm, heart sounds normal, equal pulses JOINT: joints nml, nml ROM VASCULAR: No: no vascular compromise (consider dvt) NEURO/PSYCH: oriented X3, motor nml, sensation nml, mood/affect nml, cognition normal SKIN: warm/dry, normal color. No: cyanosis, diaphoresis, jaundice Discharge Clincal Impression: Suspected DVT (deep vein thrombosis), HIV (human immunodeficiency virus infection), Hypertension Referrals: Shanae Morales MD [Primary Care Provider] - 2 Days Home Medications: Ambulatory Orders Aripiprazole [Abilify] 2 mg PO DAILY u2 05/17/13 Trazodone HCl 50 mg PO HS u2 05/17/13 Amoxicillin [Trimox] 500 mg PO TID #30 capsule 10/15/16 Tramadol HCl [Ultram] 50 mg PO Q6 PRN #20 tablet 10/15/16 Comments: rec US. rec tnsf to [facility] for US but pt refuses. will give her lovenox and ret here tues 9am for US ET AL evaluation. pt inst to rt ed stat sym worsen or raimundo chest pain or sig sob Condition: Fair Disposition: 01 HOME, SELF-CARE Decision to Admit: NO Decision Time: 10:07
[2016-10-19 10:43] VITALS: BP 146/72
== END 2016-10-19 10:41 | disposition home or self-care (01) ==
LOC: ED 08:23
DX: R60.0 Localized edema (principal); Z21 Asymptomatic human immunodeficiency virus [HIV] infection status; I10 Essential (primary) hypertension
CPT/HCPCS: A9270; J1650; 96372; 99283

== ENCOUNTER 2016-10-22 08:46 | Outpatient (CLI) | payer OTHER ==
--- NOTE | 2016-10-22 17:58 | Diagnostic Imaging Report ---
[facility] [address] [facility].[address] [address] Report Submission Date: October 22, 2016 3:12:54 PM CDT Patient Study Name: HILL HANSEN Date: October 22, 2016 9:07:50 AM CDT Modality Type: US Gender: F Description: UNILAT LTD STDY EXT VEINS : 51 Institution: [facility] Physician: RALPH SABA Ultrasound venous Doppler of right lower extremity History: Right lower extremity swelling Findings: Visualized portions of the right common femoral, femoral, profunda femoris, greater saphenous, popliteal, and posterior tibial veins exhibit normal respiratory phasicity, compressibility, and augmentation without vasques scale or color Doppler evidence of deep venous thrombosis. A small popliteal cyst and calf subcutaneous edema are observed. Impression: 1. No evidence of right lower extremity deep venous thrombosis. 2. Small popliteal cyst. 3. Subcutaneous edema in the right calf. Electronically signed on October 22, 2016 3:12:54 PM CDT by: Chino STRONG
== END 2016-10-22 08:47 ==
LOC: RAD 08:46
PROVIDERS: ATTEND Family Medicine
DX: M79.89 Other specified soft tissue disorders (principal)
CPT/HCPCS: 93971

== ENCOUNTER 2016-12-13 17:56 | Observation (INO) | payer OTHER ==
[2016-12-13] MEDS ORDERED: 0.9 % SODIUM CHLORIDE 1,000 ML IV ONE (18:29)
[2016-12-13] MEDS ORDERED: THIAMINE HCL 100 MG/ML 2ML VIAL ONE (18:34)
[2016-12-13 18:53] LABS: BASOPHILS % 0.3 (0.0-1.5); EOSINOPHILS % 2.5 % (0.0-6.8); MEAN CORPUSCULAR HEMOGLOBIN 32.8 pg (28.0-34.0); MEAN CORPUSCULAR VOLUME 95.2 fl (80.0-100.0); MONOCYTES % 3.8 % (0.0-11.0); NEUTROPHILS # 3.8 # k/uL (1.4-7.7)
[2016-12-13] MEDS ORDERED: THIAMINE HCL 100 MG, MVI, ADULT NO.1 WITH VIT K 10 ML, FOLIC ACID 5 MG in 0.9 % SODIUM ... IV SCH ×4 (19:00)
[2016-12-13 19:07] LABS: eGFR (African) > 60; eGFR (Non-African) > 60
--- NOTE | 2016-12-13 19:31 | ED Physician Documentation ---
General Adult - HISTORIAN Historian: patient - HPI Stated Complaint: ETOH abuse Chief Complaint: General Adult Onset: hours Timing: still present Severity: moderate Further Comments: yes (Pt is a 61 yo female who had come to [facility] ER several times in the past for ETOH intoxication. Pt states that she was discharged from [facility], a rehab facilty at [facility], this am and then went to a liquor store and bought a fifth of vodka. She consumed about 1/3 of the bottle, which she brings with her to ER. Pt was traveling by taxi and asked the cdl company flatbed driver [place] on [place]. The stock car driver called law enforcement, who brought the pt to ER. Pt had been advised to contact [facility] facility on previous ER visits. Pt states that she wants rehab. Pt appears intoxicated. Pt states that she is homeless. She has a sister, who she says is not available until next week. Pt states she is HIV +.) - ROS CONST: other (intoxicated, does not give reliable ROS) NEURO/PSYCH: other (intoxicated) - PAST HX Past History: other (HIV pos; ETOH abuse; psych illness on abilify) Surgeries/Procedures: none Allergies/Adverse Reactions: Allergies Allergy/AdvReac Type Severity Reaction Status Date / Time ibuprofen Allergy Intermediate Rash Verified 12/13/16 21:14 Iodinated Contrast Media - AdvReac Intermediate Palpitation Verified 12/13/16 21 :14 IV Dye s Home Medications: Ambulatory Orders Medication Instructions Recorded Aripiprazole [Abilify] 2 mg PO DAILY u2 05/17/13 - SOCIAL HX Smoking History: cigarettes Alcohol Use: heavy - FAMILY HX Family History: No - VITAL SIGNS Vital Signs: Vital Signs Temp Pulse Resp BP Pulse Ox 146/72 10/19/16 10:41 - REVIEWED ASSESSMENTS Nursing Assessment Reviewed: Yes Vitals Reviewed: Yes Progress - Progress Progress: banana bag ivf x 1 ETOH = 266 [facility] at [facility] . Unable to contact facility after hours. Admit to obs. Attempt to contact [facility] in am. ED Results Lab/Radiology - Lab Results Lab Results: Lab Results 12/13/16 12/13/16 18:50 18:50 WBC 6.00 K/ul K/ul (4.00-12.00) RBC 4.53 M/ul M/ul (3.90-5.20) Hgb 14.9 g/dL g/dL (12.0-16.0) Hct 43.2 % % (34.5-46.5) MCV 95.2 fl fl (80.0-100.0) MCH 32.8 pg pg (28.0-34.0) MCHC 34.5 g/dL g/dL (30.0-36.0) RDW 13.4 % % (11.3-14.3) Plt Count 287 K/mm3 K/mm3 (130-400) Neut % (Auto) 63.7 % % (39.0-79.0) Lymph % (Auto) 28.5 % % (16.0-50.0) [place] % (Auto) 3.8 % % (0.0-11.0) Eos % (Auto) 2.5 % % (0.0-6.8) Baso % (Auto) 0.3 (0.0-1.5) Neut # (Auto) 3.8 # k/uL # k/uL (1.4-7.7) Lymph # (Auto) 1.7 # k/uL # k/uL (0.6-4.0) [place] # (Auto) 0.2 # k/uL # k/uL (0.0-0.9) Eos # (Auto) 0.2 # k/uL # k/uL (0.0-0.6) Baso # (Auto) 0.0 # k/uL # k/uL (0.0-0.5) Reactive Lymphs % 1.3 % % (0.0-5.0) Reactive Lymphs # 0.1 # k/uL # k/uL (0.0-0.8) Sodium 141 mmol/L mmol/L (136-145) Potassium 4.4 mmol/L mmol/L (3.5-5.0) Chloride 105 mmol/L mmol/L (98-110) Carbon Dioxide 26 mmol/L mmol/L (20-32) BUN 18 mg/dL mg/dL (10-26) Creatinine 0.9 mg/dL mg/dL (0.4-1.5) Est GFR ( Amer) > 60 (60 - ) Est GFR (Non-Af Amer) > 60 (60 - ) Glucose 107 mg/dL H mg/dL (70-99) Calcium 10.3 mg/dL mg/dL (8.5-10.5) Total Bilirubin 0.3 mg/dL mg/dL (0.2-1.2) AST 21 U/L U/L (0-41) ALT 21 U/L U/L (0-45) Alkaline Phosphatase 125 U/L H U/L (46-116) Total Protein 7.2 g/dL g/dL (6.0-8.5) Albumin 4.7 g/dL g/dL (3.0-5.5) Ethyl Alcohol 266.0 MG/DL H MG/DL (<10.0) - Orders Orders: ED Orders Category Date Time Status Place IV Lock 1T Care 12/13/16 18:30 Active CBC/PLATELET/DIFF Routine Lab 12/13/16 18:50 Completed CMP Routine Lab 12/13/16 18:50 Completed DRUG SCREEN URINE MEDICAL ONLY Routine Lab 12/13/16 Ordered ETHANOL MEDICAL USE ONLY Routine Lab 12/13/16 18:50 Completed URINALYSIS Routine Lab 12/13/16 Ordered 0.9 % Sodium Chloride [Normal Saline] 1,000 ml Med 12/13/16 18:29 Discontinued IV .STK-MED Thiamine HCl Med 12/13/16 18:34 Discontinued 200 mg .ROUTE .STK-MED ONE Thiamine HCl 100 mg Med 12/13/16 19:00 Ordered Mvi, Adult No.1 with Vit K [M.v.i. Adult] 10 ml Folic Acid [Folvite] 5 mg 0.9 % Sodium Chloride [Normal Saline] 1,000 ml IV Q1 General Adult Physical Exam - PHYSICAL EXAM GENERAL APPEARANCE: mild distress (thin body habitus) EENT: eye inspection normal, pharynx normal NECK: normal inspection, supple RESPIRATORY: no resp distress, chest non-tender, breath sounds normal CVS: reg rate & rhythm, heart sounds normal ABDOMEN: soft, no organomegaly, normal bowel sounds BACK: normal inspection SKIN: warm/dry EXTREMITIES: non-tender, normal range of motion, no evidence of injury NEURO: other (intoxicated) Discharge Clincal Impression: Acute alcohol intoxication Qualifiers: Complication of substance-induced condition: uncomplicated Qualified Code(s): F10.920 - Alcohol use, unspecified with intoxication, uncomplicated Referrals: Shanae Morales MD [Primary Care Provider] - 2 Days Home Medications: Ambulatory Orders Aripiprazole [Abilify] 2 mg PO DAILY u2 05/17/13 Condition: Stable Disposition: 09 ADMITTED INPATIENT Decision to Admit: NO Decision Time: 21:25
[2016-12-13] MEDS ORDERED: ARIPIPRAZOLE 2 MG TABLET PO SCH (22:00)
[2016-12-13 22:15] VITALS: BMI 18.9
[2016-12-14] MEDS ORDERED: SALINE FLUSH 10 ML DISP.SYRIN IVF ONE (00:33)
[2016-12-14 08:34] VITALS: BP 113/72
[2016-12-14] MEDS ORDERED: SALINE FLUSH 10 ML DISP.SYRIN IV SCH (09:00)
--- NOTE | 2017-02-04 18:18 | Discharge Summary ---
Discharge Summary - Discharge Sumary History of Present Illness: Pt is a 61 yo female who had come to [facility] ER several times in the past for ETOH intoxication. Pt states that she was discharged from [facility], a rehab facilty at [facility], on the day of admission and then went to a liquor store and bought a fifth of vodka. She consumed about 1/3 of the bottle , which she brings with her to ER. Pt was traveling by taxi and asked the otr refrigerated cdl truck driver to let [place] on the [place]. The winch driver called law enforcement , who brought the pt to ER. Pt had been advised to contact [facility] facility on previous ER visits. Pt states that she wants rehab. Pt appears intoxicated. Pt states that she is homeless. She has a sister, who she says is not available until next week. Pt states she is HIV +. Patient admitted for further support and detox. Home Medications: Ambulatory Orders Medication Instructions Recorded Aripiprazole [Abilify] 2 mg PO DAILY u2 05/17/13 Allergies/Adverse Reactions: Allergies Allergy/AdvReac Type Severity Reaction Status Date / Time ibuprofen Allergy Intermediate Rash Verified 12/13/16 21:14 Iodinated Contrast Media - AdvReac Intermediate Palpitation Verified 12/13/16 21 :14 IV Dye s Discharge Summary: Patient was started on IV fluids and thiamine. Patient did not have any acute withdrawal symptoms during her hospitalization. After the patient became more sober she stated she wanted to leave the hospital. Patient states that she would arrange for outpatient therapy. Patient does have some family/friends that she will be staying with. Patient blood alcohol was initially 266. Patient was advised that is important for her to stop drinking for her health reasons. Patient was subsequently discharged in stable condition. - Final Diagnosis (1) Acute alcohol intoxication Problems: improved (2) Bipolar 1 disorder Problems: stable
== END 2016-12-14 11:11 | disposition home or self-care (01) ==
LOC: ED 17:56 → SOUTH 21:23
PROVIDERS: ADMIT Emergency Medicine; ATTEND Emergency Medicine
DX: F10.129 Alcohol abuse with intoxication, unspecified (principal); F31.9 Bipolar disorder, unspecified
CPT/HCPCS: 80053; 80320; 85025; A9270; G0378; J3411; J3490; J7030; 96365; 96367; 99284; G0480; S1016

== ENCOUNTER 2017-03-28 19:18 | Emergency (ER) | payer OTHER ==
[2017-03-28] MEDS: KETOROLAC TROMETHAMINE 60 MG/2 ML VIAL IM ONE (20:17)
[2017-03-28] MEDS: KETOROLAC TROMETHAMINE 60 MG/2 ML VIAL ONE (20:18)
[2017-03-28 20:31] VITALS: BP 144/91
--- NOTE | 2017-03-28 20:33 | ED Physician Documentation ---
Lower Extremity Problem - HISTORIAN Historian: patient - HPI Stated Complaint: verenice ankle pain Chief Complaint: Lower Extremity Problem Additional Information: pt c/o bilateral ankle pain. she is resident of [facility]- until she can get into her apartment apr 09. pts there are required to lien out of the facility from 0900 to 1700 hrs. pt has been walking excess and has developed lt ankle pain now also rt she wants meds or asst w/the pain. I rec canes . or crutches for partial wt bearing. she requested tramadol or toradol. she is allergic to ib u but says she can take toradol w/o difficulty. Location of Injury: R ankle, L ankle Onset: days ago (3-4) Timing: worse Recent Injury: No Severity: moderate Quality: pain, swelling (perhaps very minimal) Exacerbated By: walking, movement, other (coughing) Relieved By: rest Associated Symptoms: denies: chest pain, shortness of breath, rapid heart rate - ROS CONST: no problems MS/SKIN/LYMPH: none CVS/RESP: none GI/: none NERUO/PSYCH: difficulty walking - PAST HX Past History: other (HIV HTN BIPOLAR GERD PREV SUBSTANCE ABUSE BOTH ETOH AND PRESCRIPTION DRUGS-ACCD TO RECORD) Surgeries/Procedures: none Allergies/Adverse Reactions: Allergies Allergy/AdvReac Type Severity Reaction Status Date / Time ibuprofen Allergy Intermediate Rash Verified 12/13/16 21:14 Iodinated Contrast Media - AdvReac Intermediate Palpitation Verified 03/28/17 19 :31 IV Dye s Home Medications: Ambulatory Orders Medication Instructions Recorded Aripiprazole [Abilify] 20 mg PO DAILY u2 05/17/13 Ketorolac Tromethamine [Toradol] 10 mg PO QID #20 tablet 03/28/17 Lisinopril [Zestril] 10 mg PO D 03/28/17 Omeprazole [Prilosec] 10 mg PO D 03/28/17 - SOCIAL HX Smoking History: less than 1 pack/day Alcohol Use: none Drug Use: none - FAMILY HX Family History: no significant history - VITAL SIGNS Vital Signs: Vital Signs Temp Pulse Resp BP Pulse Ox 113/72 12/14/16 10:33 - REVIEWED ASSESSMENTS Nursing Assessment Reviewed: Yes Vitals Reviewed: Yes ED Results Lab/Radiology - Orders Orders: ED Orders Category Date Time Status Ketorolac Tromethamine [Toradol] Med 03/28/17 19:59 Discontinued 60 mg .ROUTE .STK-MED ONE Ketorolac Tromethamine [Toradol] Med 03/28/17 20:09 Discontinued 60 mg IM NOW ONE Lower Extremity Problem - EXAM General Appearance: mild distress Neuro/Tendon: normal sensation, normal motor functions RESPIRATORY: no resp distress, chest non-tender CVS: reg rate & rhythm, heart sounds normal JOINT: effusion (PERHAPS VERY MINIMAL). No: joints nml, nml ROM VASCULAR: no vascular compromise NEURO/PSYCH: oriented X3, motor nml, sensation nml, mood/affect nml SKIN: warm/dry, normal color. No: cyanosis, diaphoresis BACK: normal inspection Discharge Clincal Impression: OVERUSE SYNDROME ANKLES Prescriptions: Ketorolac Tromethamine [Toradol] 10 mg PO QID #20 tablet Referrals: Shanae Morales MD [Primary Care Provider] - 2 Days Comments: REST ELEVATE ANKLES WHEN POSSIBLE USE CANES OR LCRUTCHES- SUGGEST THRIFT SHOP SOURCE Condition: Good Disposition: 01 HOME, SELF-CARE Decision to Admit: NO Decision Time: 20:40
== END 2017-03-28 20:35 | disposition home or self-care (01) ==
LOC: ED 19:18
DX: M70.872 Other soft tissue disorders related to use, overuse and pressure, left ankle and foot (principal); M70.871 Other soft tissue disorders related to use, overuse and pressure, right ankle and foot
CPT/HCPCS: 96372; 99283; J1885

== ENCOUNTER 2017-03-31 10:57 | Emergency (ER) | payer OTHER ==
--- NOTE | 2017-03-31 11:16 | ED Physician Documentation ---
Neuro Symptoms - HISTORIAN Historian: patient, other (caregiver) - HPI Chief Complaint: Lower Extremity Problem Additional Information: when I WENT INTO room to introduce myself pt said"OH NO NOT HIM" REFUSING SERVICE. SHE SIGNED ama. WE TOLD CAREGIVER THAT DR SABA would be here tomorrow IF SHE WANTED TO RETURN THEN. the nursing staff also rec they could call 911 for tnsp to another facility. I REC PREV CHART AND DID NOT RECALL ANY CIONFLICT WITH THIS PT THEN. PT LEFT AMA - PAST HX Allergies/Adverse Reactions: Allergies Allergy/AdvReac Type Severity Reaction Status Date / Time ibuprofen Allergy Intermediate Rash Verified 03/31/17 11:22 Iodinated Contrast Media - AdvReac Intermediate Palpitation Verified 03/31/17 11 :22 IV Dye s Home Medications: Ambulatory Orders Medication Instructions Recorded Aripiprazole [Abilify] 20 mg PO DAILY u2 05/17/13 Ketorolac Tromethamine [Toradol] 10 mg PO QID #20 tablet 03/28/17 Lisinopril [Zestril] 10 mg PO D 03/28/17 Omeprazole [Prilosec] 10 mg PO D 03/28/17 - VITAL SIGNS Vital Signs: Vital Signs Temp Pulse Resp BP Pulse Ox 86 18 117/77 99 03/31/17 10:59 03/31/17 10:59 03/31/17 10:59 03/31/17 10:59 Discharge Clincal Impression: PT LEFT AMA W/ QM CONSULTANT Referrals: Shanae Morales MD [Primary Care Provider] - 2 Days Comments: NO OTHER CONTACT WAS MADE W/ THIS PT--NO EXAM OR HX WAS PERFORMED
[2017-03-31 11:22] VITALS: BP 117/77
== END 2017-03-31 11:13 ==
LOC: ED 10:57
DX: Z53.21 Procedure and treatment not carried out due to patient leaving prior to being seen by health care provider (principal)
CPT/HCPCS: 99281

== ENCOUNTER 2017-03-31 11:46 | Emergency (ER) | payer OTHER ==
--- NOTE | 2017-03-31 12:25 | ED Physician Documentation ---
Lower Extremity Problem - HISTORIAN Historian: patient, paramedics - HPI Stated Complaint: feet and leg pain Chief Complaint: Lower Extremity Injury Additional Information: pt here few moments ago w/caregiver. the pt refused my svc then so they left. apparently the care team assistant took her to [facility] and she was transported back here w/o the care team assistant. she is pleasant now agrees to be seen. she states the toradol did not hellp but on questioning appeas she has had good success w/ tramadol in past-so will xray ankles and proceed accordingly. the nurse SAE accompanied me during the visit Location of Injury: R ankle, L ankle Onset: days ago (konset while at [facility]. There pts must be out of facility from 0900 to 1700 and pt states she did not have anything to do but walk. this is apparent etiology of the ankle pain. she declines another injection of toradol though she told me at prev visit the toradol did help and was much better when she left.) Timing: still present (but she has transferred to the hotel until her apt is ready 04-09-17. ) Recent Injury: No Context: prolonged pressure on ext (from walking) Where: other (street and occ to library) Severity: moderate, severe Quality: pain, tenderness. denies: swelling, numbness, tingling Exacerbated By: walking, other (standing) Relieved By: rest Associated Symptoms: denies: chest pain - ROS CONST: no problems MS/SKIN/LYMPH: none GI/: none EYES/ENT: denies: problems with vision, sore throat NERUO/PSYCH: difficulty walking, anxiety, depression (pt reportedly is a long time alcolohic). denies: headache, dizziness - PAST HX Past History: none (HTN BIPOLAR GERD HIV HX ETHANOL AND PRESCRIPTIONMEDS ABUSE ADV DJD ANXIETY) PE Risk Factors: hypertension Surgeries/Procedures: other (PT DENIES) Allergies/Adverse Reactions: Allergies Allergy/AdvReac Type Severity Reaction Status Date / Time ibuprofen Allergy Intermediate Rash Verified 03/31/17 11:54 Iodinated Contrast Media - AdvReac Intermediate Palpitation Verified 03/31/17 11 :54 IV Dye s Home Medications: Ambulatory Orders Medication Instructions Recorded Aripiprazole [Abilify] 20 mg PO DAILY u2 05/17/13 Ketorolac Tromethamine [Toradol] 10 mg PO QID #20 tablet 03/28/17 Lisinopril [Zestril] 10 mg PO D 03/28/17 Omeprazole [Prilosec] 10 mg PO D 03/28/17 - SOCIAL HX Smoking History: non-smoker Alcohol Use: none (NOW HOWEVER PT BREATH SMELLS) Drug Use: none - FAMILY HX Family History: no significant history - VITAL SIGNS Vital Signs: Vital Signs Temp Pulse Resp BP Pulse Ox 86 16 117/77 99 03/31/17 11:47 03/31/17 11:47 03/31/17 11:47 03/31/17 11:47 - REVIEWED ASSESSMENTS Nursing Assessment Reviewed: Yes Vitals Reviewed: Yes ED Results Lab/Radiology - Radiology Radiology Impressions: xray did not revealacute condition-joint space narrowingis noted and plate and screws rt distal tib/fib appears normal - Orders Orders: ED Orders Category Date Time Status BILAT ANKLES 3 VIEW [RAD] Stat Exams 03/31/17 Ordered traMADol HCL [Ultram] Med 03/31/17 12:19 Discontinued 50 mg PO NOW ONE Lower Extremity Problem - EXAM General Appearance: moderate distress Neuro/Tendon: normal sensation (MINIMAL; TO NO SWELLINGOF ANKLES-BUT PT C/O PAIN W/PALPATION) EENT: eye inspection normal RESPIRATORY: no resp distress, chest non-tender, breath sounds normal CVS: reg rate & rhythm, heart sounds normal JOINT: nml ROM, painful. No: Nml gait/weight bearing (C/O PAINAND OCCKNEES BUCKLE BUT DOES NOT FALL DURING EXAM) VASCULAR: no vascular compromise. No: pulses full/equal (MARKED DIMINISHED) NEURO/PSYCH: oriented X3, motor nml, sensation nml, depressed mood/affect SKIN: warm/dry, normal color. No: cyanosis, diaphoresis, jaundice BACK: CVA tenderness (R), CVA tenderness (L) Discharge Clincal Impression: bilateral ankle pain du over use syndrom, marked anxiety and depression Referrals: Shanae Morales MD [Primary Care Provider] - 2 Days Additional Instructions: pt to f/u soon w/pcp Condition: Fair Disposition: 01 HOME, SELF-CARE Decision to Admit: NO Decision Time: 13:17
[2017-03-31] MEDS: traMADol HCL 50 MG TABLET PO ONE (12:26)
[2017-03-31 13:39] VITALS: BP 115/70
--- NOTE | 2017-03-31 14:14 | Diagnostic Imaging Report ---
REGINA BATISTA [facility] [address] [facility].[address] [address] Report Submission Date: Mar 31, 2017 12:57:27 PM ADHESIVE SPRAYER Patient Study Name: HILL HANSEN Date: Mar 31, 2017 12:43:20 PM ADHESIVE SPRAYER Modality Type: CR Gender: F Description: LOWER EXTREMITY : 51 Institution: [facility] Physician: REGINA BATISTA Examination: Plain film ankle History: Ankle discomfort. Findings: 3 views of the left and right ankles demonstrates osteopenia. Right ankle fixation hardware. No fracture or dislocation. Talar dome is intact. No soft tissue swelling. No joint effusion. Impression: Osteopenia and degenerative changes. No acute appearing osseous process. Electronically signed on Mar 31, 2017 12:57:27 PM ADHESIVE SPRAYER by: Phillip STRONG
== END 2017-03-31 13:35 | disposition home or self-care (01) ==
LOC: ED 11:46
DX: M70.872 Other soft tissue disorders related to use, overuse and pressure, left ankle and foot (principal); M70.871 Other soft tissue disorders related to use, overuse and pressure, right ankle and foot; F41.8 Other specified anxiety disorders
CPT/HCPCS: 99283